=== PATIENT | male | born 1975 | race Caucasian/White ===

== ENCOUNTER 2020-07-07 12:10 | Emergency (ER) | payer OTHER ==
[2020-07-07] MEDS ORDERED: Ketorolac 60 MG/2 ML SDV IM ONE (16:09)
--- NOTE | 2020-07-07 16:14 | EDM.PDOC ---
ED HPI GENERAL MEDICAL PROBLEM - General Chief Complaint: Lower Extremity Injury/Pain Stated Complaint: LT CALF PAIN Time Seen by Provider: 07/07/20 15:50 Source of Information: Reports: Patient History Limitations: Reports: No Limitations - History of Present Illness INITIAL COMMENTS - FREE TEXT/NARRATIVE: 34-year-old male with a left lower extremity injury yesterday when he felt a pop behind his heel and now is unable to walk because of significant pain. He is also developed some bruising and swelling behind the left foot. Onset: Sudden Duration: Hour(s): (12 hours ago) Location: Reports: Lower Extremity, Left Severity: Moderate Worsens with: Reports: Other (Any attempt at movement or weightbearing is significantly painful), Movement Associated Symptoms: Reports: No Other Symptoms - Related Data Allergies Allergy/AdvReac Type Severity Reaction Status Date / Time No Known Allergies Allergy Verified 07/07/20 15:46 Home Meds: Home Meds Ibuprofen 600 mg PO Q6HR 07/07/20 [History] Past Medical History Musculoskeletal History: Reports: Arthritis, Fracture, Other (See Below) Other Musculoskeletal History: low back pain, hip issues, shoulder Psychiatric History: Reports: Depression - Infectious Disease History Infectious Disease History: Reports: Chicken Pox Social & Family History - Tobacco Use Tobacco Use Status *Q: Current Every Day Tobacco User Years of Tobacco use: 12 Packs/Tins Daily: 0.5 - Caffeine Use Caffeine Use: Reports: Coffee, Soda, Tea - Alcohol Use Days Per Week of Alcohol Use: 1 Number of Drinks Per Day: 3 Total Drinks Per Week: 3 - Recreational Drug Use Recreational Drug Use: No Review of Systems - Review of Systems Review Of Systems: See Below Constitutional: Denies: Fever Respiratory: Reports: No Symptoms Cardiovascular: Reports: No Symptoms Musculoskeletal: Reports: Leg Pain Skin: Reports: Bruising (Some bruising developing on the back of the left leg) Psychiatric: Reports: No Symptoms ED EXAM, GENERAL - Physical Exam Exam: See Below Exam Limited By: No Limitations General Appearance: Alert, No Apparent Distress Head: Atraumatic Respiratory/Chest: No Respiratory Distress, Lungs Clear Extremities: Other (Exam is otherwise limited to the lower extremities. There is some diffuse mild swelling around the lower leg near the ankle on the left side with some slight bruising, and the calcaneal tendon is soft to palpation versus the right which is intact.) Course - Vital Signs Last Recorded V/S: Last Vital Signs Temp 98.1 F 07/07/20 15:58 Pulse 82 07/07/20 15:58 Resp 16 07/07/20 15:58 BP 142/83 H 07/07/20 15:58 Pulse Ox 98 07/07/20 15:58 - Orders/Labs/Meds Orders: Active Orders 24 hr Category Date Time Status DME for Discharge [COMM] Stat Oth 07/07/20 16:06 Ordered Meds: Medications Discontinued Medications Generic Name Dose Route Start Last Admin Trade Name Janet PRN Reason Stop Dose Admin Ketorolac Tromethamine 60 mg 07/07/20 16:09 07/07/20 16:14 Ketorolac 60 Mg/2 Ml Sdv IM 07/07/20 16:10 60 mg ONETIME ONE Administration - Re-Assessments/Exams Free Text/Narrative Re-Assessment/Exam: 07/07/20 18:31 This patient likely has a calcaneal rupture on the left side. He was placed in orthopedic cam walker and given crutches, encouraged to avoid weightbearing on the left foot, elevate the foot when able, use pain control as prescribed and [facility] including an MRI of the area. Departure - Departure Time of Disposition: 16:40 Disposition: Home, Self-Care 01 Clinical Impression: Injury of left Achilles tendon Qualifiers: Encounter type: initial encounter Qualified Code(s): S86.002A - Unspecified injury of left Achilles tendon, initial encounter - Discharge Information Instructions: Achilles Tendon Tear Referrals: Kathleen Hernandez MD [Primary Care Provider] - Forms: ED Department Discharge Care Plan Goals: Keep boot on and use crutches for ambulation, elevate foot when able. [facility] for further evaluation including an MRI of your injured foot. A regular dose of ibuprofen will be helpful, add stronger pain medications as directed if needed. Sepsis Event Note (ED) - Evaluation Sepsis Screening Result: No Definite Risk - Focused Exam Vital Signs: Vital Signs Temp Pulse Resp BP Pulse Ox 07/07/20 15:58 98.1 F 82 16 142/83 H 98 07/07/20 15:40 98.1 F 82 16 142/83 H 98 - My Orders Last 24 Hours: My Active Orders 07/07/20 16:06 DME for Discharge [COMM] Stat - Assessment/Plan Last 24 Hours: My Active Orders 07/07/20 16:06 DME for Discharge [COMM] Stat
== END 2020-07-07 16:40 | disposition home or self-care (01) ==
LOC: JP.ED 12:10
DX: S80.12XA Contusion of left lower leg, initial encounter (principal); Z72.0 Tobacco use; W17.89XA Other fall from one level to another, initial encounter
CPT/HCPCS: 96372; 99283; J1885

== ENCOUNTER 2023-05-21 14:43 | Emergency (ER) | payer OTHER ==
[2023-05-21] MEDS: Lidocaine 1% with EPINEPHrine 1:100,000 20 ML MDV INJECT ONE (15:33)
[2023-05-21] MEDS: Bacitracin Oint 1 GM U/D Packet TOP ONE (15:33)
[2023-05-21] MEDS: Diphtheria,Pertussis(Acell),Tetanus Vaccine 0.5 ML Syringe IM ONE (15:52)
== END 2023-05-21 17:35 | disposition home or self-care (01) ==
LOC: JP.ED 14:43
DX: S62.632A Displaced fracture of distal phalanx of right middle finger, initial encounter for closed fracture (principal); F17.210 Nicotine dependence, cigarettes, uncomplicated; Z79.899 Other long term (current) drug therapy; Z86.19 Personal history of other infectious and parasitic diseases; Z23 Encounter for immunization; W23.1XXA Caught, crushed, jammed, or pinched between stationary objects, initial encounter
CPT/HCPCS: 12002; 73140-26-F7; 73140-F7; 90471; 90715; 99283-25